=== PATIENT | female | born 1995 | race African-American/Black ===

== ENCOUNTER 2019-06-07 18:06 | Emergency (ER) | payer SELFPAY ==
[2019-06-07 19:26] LABS: #Eosinphils 0.1 thou/uL (0.0-0.7); #Lymphocytes 1.4 thou/uL (1.20-3.40); #Monocytes 0.5 thou/uL (0.11-0.59); #Neutrophils 3.9 thou/uL (1.40-6.50); %Basophils 0.6 % (0.0-1.0); %Eosinophils 2.4 % (0.0-10.0); %Lymphocytes 23.1 % (21.0-51.0); %Monocytes 8.3 % (0.0-10.0); %Neutrophils 65.6 % (42.0-75.0); Hemoglobin 13.8 g/dL (12.0-16.0); Mean Corpuscular HGB CONC 34.8 g/dL (32.0-36.0); Mean Corpuscular Hemoglobin 30.4 pg (27.0-31.0); Mean Corpuscular Volume 87.3 fL (78.0-98.0); Mean Platelet Volume 7.7 fL (7.4-10.4); Platelet Count 257 thou/uL (130-400); RBC Distribution Width 11.6 % (11.5-14.5); Red Blood Cell (RBC) Count 4.56 mill/uL (4.20-5.40); White Blood Cell (WBC) Count 5.9 thou/uL (4.8-10.8)
[2019-06-07 19:28] LABS: BHCG - Serum POSITIVE (NEGATIVE); Pregs Control Background? CLEAR/WHITE (CLR/WHITE); Pregs Control Bar Appear? YES (CONTROL BAR)
[2019-06-07 19:37] LABS: Bacteria/HPF None Seen HPF (None Seen); Bilirubin Negative (Negative); Blood, Urine 2+ (Negative); Clarity Clear (Clear); Glucose, Urine (Dipstick) Normal (Negative); Leukocyte 75 Leu/uL (Negative); Nitrite Negative (Negative); Protein, Urine (Dipstick) 20 mg/dL (Neg-Trace); RBC/HPF 0-3 HPF (0-3); Urobilinogen 3 mg/dL (Less than 2); WBC/HPF 0-3 HPF (0-3)
--- NOTE | 2019-06-07 21:10 | ULT ---
US Pelvic Transvag HISTORY: Vaginal spotting COMPARISON: None TECHNIQUE: Multiple grayscale and color Doppler images were obtained in a transabdominal and transvag inal pelvic ultrasound. Spectral analysis of the Doppler waveforms of the ovaries were performed. FINDINGS: There is a gestational sac present with an internal yolk sac. pole is not seen. On the basis of sonographic imaging this corresponds to an approximate 6 week, 2 day gestation. Stated clinical dates are 7 weeks 5 days. There is a small subchorionic hemorrhage. IMPRESSION: Sonographic findings favor a failed first trimester gestation, given the stated clinical dates, as well as ultrasound age greater than 6 weeks with absence of visible pole. Recommend clinical correlation in this regard. If clinically necessary, short-term imaging follow-up may also b e obtained. Transcribed Date/Time: 06/07/2019 9:20 PM
== END 2019-06-07 21:54 | disposition home or self-care (01) ==
LOC: ERS 18:06
DX: O20.0 Threatened abortion (principal); Z3A.01 Less than 8 weeks gestation of pregnancy
CPT/HCPCS: 36415; 76856; 81003; 81015; 84702; 84703; 85025; 86900; 86901

== ENCOUNTER 2019-06-10 22:57 | Emergency (ER) | payer SELFPAY | END 2019-06-11 00:01 | disposition home or self-care (01) | LOC: ERS 22:57 | DX: O20.0 Threatened abortion (principal); Z3A.08 8 weeks gestation of pregnancy | CPT/HCPCS: 99283 ==

== ENCOUNTER 2019-08-21 14:20 | Emergency (ER) | payer BC ==
[2019-08-21 14:58] LABS: #Eosinphils 0.1 thou/uL (0.0-0.7); #Lymphocytes 1.7 thou/uL (1.20-3.40); #Monocytes 0.4 thou/uL (0.11-0.59); #Neutrophils 2.5 thou/uL (1.40-6.50); %Basophils 0.7 % (0.0-1.0); %Eosinophils 2.1 % (0.0-10.0); %Lymphocytes 36.3 % (21.0-51.0); %Monocytes 7.8 % (0.0-10.0); %Neutrophils 53.1 % (42.0-75.0); Hemoglobin 13.2 g/dL (12.0-16.0); Mean Corpuscular HGB CONC 34.6 g/dL (32.0-36.0); Mean Corpuscular Hemoglobin 29.9 pg (27.0-31.0); Mean Corpuscular Volume 86.6 fL (78.0-98.0); Platelet Count 252 thou/uL (130-400); RBC Distribution Width 11.6 % (11.5-14.5); Red Blood Cell (RBC) Count 4.39 mill/uL (4.20-5.40); White Blood Cell (WBC) Count 4.6 thou/uL (4.8-10.8)
[2019-08-21 15:47] LABS: Bilirubin Negative (Negative); Blood, Urine Negative (Negative); Clarity Clear (Clear); Glucose, Urine (Dipstick) Normal (Negative); Leukocyte Negative Leu/uL (Negative); Nitrite Negative (Negative); Protein, Urine (Dipstick) 10 mg/dL (Neg-Trace); Urobilinogen Normal mg/dL (Less than 2)
--- NOTE | 2019-08-21 16:34 | ULT ---
PELVIC ULTRASOUND: 08/21/19 COMPARISON: None. HISTORY: 23-year-old female with vaginal bleeding. TECHNIQUE: Multiplanar evans scale sonographic imaging of the pelvis obtained with transabdominal and endovaginal imaging. Ovaries are assessed with color flow and spectral analysis. FINDINGS: The uterus measures 8.8 x 5.1 x 7.2 cm. Right ovary measures 4.0 x 2.8 x 2.8 cm and left ovary measur es 2.7 x 1.8 x 1.8 cm. The ovaries demonstrate normal blood flow. There is a cyst within the right ov karel measuring 1.9 x 1.9 x 1.5 cm. There appears to be an intrauterine gestational sac which contains a prominent yolk sac. However, no pole is appreciated. The yolk sac measures 8 mm in transverse dimension and the gestational sac diameter is 1.6 cm, which would correlate with a 6 week, 3 day gestation. There is small volume free fluid in the pelvic cul-de-sac. On the endovaginal imaging within the small volume fluid within the pelvic cul-de-sac, there is a rou nd hypoechoic area measuring 1.2 cm which could represent artifact or a cystic mass within the free p elvic fluid. IMPRESSION: Findings suggesting an intrauterine gestational sac with a yolk sac but no pole. This could rep resent normal early or failed given size of gestational sac with absence of pole. Thus, short term follow-up quantitative beta HCG and pelvic ultrasound in 48 hours advised. Within the free fluid within the pelvic sac, which is of small volume, there is a questionable round hypoechoic lesion which could represent artifact or a cystic structure within the free pelvic fluid. Heterotopic cannot be fully excluded in the proper clinical setting. Code T POS: DELICIA
[2019-08-23 06:28] LABS: Chlamydia by PCR Not Detected (NotDetected); GC by PCR Not Detected (NotDetected)
== END 2019-08-21 18:10 | disposition home or self-care (01) ==
LOC: ERS 14:20
DX: O20.0 Threatened abortion (principal); O23.591 Infection of other part of genital tract in pregnancy, first trimester; Z3A.01 Less than 8 weeks gestation of pregnancy
CPT/HCPCS: 36415; 76856; 81003; 84702; 85025; 86900; 86901; 87480; 87491; 87510; 87591; 87660

== ENCOUNTER 2019-11-09 16:24 | Emergency (ER) | payer BC | END 2019-11-09 17:31 | disposition home or self-care (01) | LOC: ERS 16:24 | DX: J06.9 Acute upper respiratory infection, unspecified (principal) | CPT/HCPCS: 87804; 99283 ==